=== PATIENT | female | born 1995 | race Caucasian/White ===

== ENCOUNTER 2020-06-11 21:53 | Emergency (ER) | payer OTHER ==
[~2020-06-11] VITALS: Ht 160 cm; Wt 97.3 kg
[2020-06-11] MEDS ORDERED: NS 1,000 ML IV ONE (22:30)
[2020-06-11] MEDS ORDERED: ISOVUE-370 76% 100ML VIAL As Ordered ONE (22:49)
[2020-06-11 22:53] LABS: BASO # 0.1 10^3/uL (0.0-0.2); BASO % 0.5 % (0.0-1.0); EOS # 0.3 10^3/uL (0.0-0.5); EOS % 3.2 % (0.0-3.0); HEMATOCRIT 37.2 % (36.0-47.0); HEMOGLOBIN 11.9 g/dl (12.0-15.5); LYMPH # 2.8 10^3/uL (1.5-5.0); LYMPH % 28.1 % (24.0-44.0); MEAN CORPUSCULAR HEMOGLOBIN 24.6 pg (27.0-33.0); MONO # 0.8 10^3/uL (0.0-0.8); MONO % 7.7 % (0.0-5.0); NEUTROPHILS # 5.9 10^3/uL (1.5-8.5); NEUTROPHILS % 60.1 % (36.0-66.0); PLATELET COUNT, AUTOMATED 380 10^3/uL (150-450); RED BLOOD COUNT 4.83 10^6/uL (4.00-5.40); WHITE BLOOD COUNT 9.8 10^3/uL (4.0-10.0)
[2020-06-11 23:22] LABS: BILIRUBIN,DIRECT 0.1 MG/DL (0.0-0.2); BILIRUBIN,TOTAL 0.3 MG/DL (0.2-1.0); TOTAL PROTEIN 8.4 GM/DL (6.4-8.2)
--- NOTE | 2020-06-11 23:29 | REPVR ---
PROCEDURE INFORMATION: Exam: CT Abdomen And Pelvis With Contrast Exam date and time: 06/11/2020 10:24 PM Age: 25 years old Clinical indication: Abdominal pain; Localized; Right lower quadrant (rlq); Additional info: Rlq pain, R/O appendicitis TECHNIQUE: Imaging protocol: Computed tomography of the abdomen and pelvis with intravenous contrast. Radiation optimization: All CT scans at this facility use at least one of these dose optimization techniques: automated exposure control; mA and/or kV adjustment per patient size (includes targeted exams where dose is matched to clinical indication); or iterative reconstruction. Contrast material: ISO; Contrast volume: 100 ml; Contrast route: INTRAVENOUS (IV); COMPARISON: No relevant prior studies available. FINDINGS: Lungs: Clear appearing lung bases. Liver: Normal appearing liver. Gallbladder and bile ducts: Normal gallbladder. Normal common bile duct. Pancreas: Normal pancreas. Spleen: Normal spleen. Adrenals: Normal adrenal glands. Kidneys and ureters: There is bilateral enhancement of both kidneys. There is no evidence of obstruction of the right or left ureter. Stomach and bowel: The cecum is in the right pelvis and the margins appear smooth. There is no evidence of inflammation. There is a large amount of food material within the stomach. Appendix: The appendix is posterior to the cecum and appearing normal in size. Intraperitoneal space: There is no evidence of free fluid in the abdomen or pelvis. Vasculature: There is opacification of the aorta appears intact. There is opacification of the renal arteries. There is opacification of the SMV the and the SMA. Lymph nodes: Unremarkable. No enlarged lymph nodes. Bladder: The urinary bladder is empty. Reproductive: There is thickening of the endometrium probably secretory type endometrium. 1.6 cm cyst of the right ovary. Bones/joints: There is no evidence of bony abnormality. Soft tissues: No evidence of soft tissue abnormality. IMPRESSION: 1. No evidence of appendicitis. 2. No evidence of bowel obstruction. 3. 1.6 cm cyst of the right ovary. 4. Thickening of the endometrium measuring 2 cm probably secretory type endometrium. Electronically signed by: Silvino Velásquez On 06/11/2020 23:29:01 PM
[2020-06-12 00:38] VITALS: BP 137/86
== END 2020-06-12 00:40 | disposition home or self-care (01) ==
LOC: M ED 21:53
DX: N83.201 Unspecified ovarian cyst, right side (principal); Z88.0 Allergy status to penicillin; F17.210 Nicotine dependence, cigarettes, uncomplicated
CPT/HCPCS: 74177; 80047; 80076; 81001; 83690; 84702; 85025; 96360; 96361; 99284; Q9967